=== PATIENT | female | born 1950 | race Caucasian/White ===

== ENCOUNTER 2023-08-13 06:00 | Day surgery (SDC) | payer OTHER ==
[2023-08-12 15:34] LABS: HEMATOCRIT 34.3 % (36.0-45.00); HEMOGLOBIN 11.6 g/dL (12.0-15.00); MEAN CELL VOLUME 89.1 fL (80.00-100.00); MEAN CORPUSCULAR HEMOGLOBIN 30.1 pg (27.00-32.0); MEAN CORPUSCULAR HGB CONC 33.8 g/dl (32.0-36.0); PLATELET COUNT 294 K/uL (150-450); RED BLOOD COUNT 3.84 M/uL (4.00-6.00); RED CELL DISTRIBUTION WIDTH 13.1 % (11.5-14.5)
[2023-08-12 16:05] LABS: INR 0.97; PROTHROMBIN TIME 10.2 SECONDS (9.0-11.5)
[2023-08-12 16:30] LABS: ALBUMIN 3.9 gm/dL (3.4-5.0); BILIRUBIN TOTAL 0.37 mg/dL (0.3-1.2); CALCIUM 10.3 mg/dL (8.5-10.1); CREATININE SERUM 0.9 mg/dL (0.55-1.02); GFR 61.72; POTASSIUM 3.63 mEq/L (3.5-5.1); TOTAL PROTEIN 7.9 gm/dL (6.4-8.2)
[2023-08-13 06:58] LABS: URINE APPEARANCE Clear; URINE BILIRRUBIN Negative (NEGATIVE); URINE BLOOD Negative; URINE COLOR Yellow; URINE GLUCOSE Negative (NEGATIVE); URINE LEUKOCYTE Negative; URINE NITRATE Negative; URINE PROTEIN Negative (NEGATIVE); URINE UROBILINOGEN 0.2 E.U./dl
[2023-08-13 06:59] LABS: URINE BACTERIA 6.2 uL (0.0-1933); URINE RBC 3.4 uL (0.0-20.8)
[2023-08-13 07:16] LABS: URINE EPITHELIAL CELLS 1.3 uL (0.0-38.8); URINE WBC 0.4 uL (0.0-23.2)
[2023-08-13] MEDS ORDERED: CEFAZOLIN SODIUM 1,000 MG VIAL ONE (14:05)
[2023-08-13] MEDS ORDERED: BUPIVACAINE HCL/PF 0.5% 30ML ML ONE (16:29)
[2023-08-13] MEDS ORDERED: POVIDONE-IODINE 118 ML BOTT TOP ONE (17:29)
[2023-08-13] MEDS ORDERED: BUPIVACAINE HCL 30 ML VIAL IJ ONE (17:30)
[2023-08-13] MEDS ORDERED: CEFAZOLIN SODIUM 1,000 MG VIAL IV ONE (17:30)
[2023-08-13] MEDS ORDERED: ALEVE220 M1 PO (18:17)
[2023-08-13] MEDS ORDERED: CEFADROXIL500 MG PO (18:17)
[2023-08-13] MEDS ORDERED: PERCOCET 5-3251 EACH PO (18:17)
[2023-08-13] MEDS ORDERED: KETOROLAC TROMETHAMINE 30 MG VIAL ONE (20:54)
== END 2023-08-13 21:20 | disposition home or self-care (01) ==
LOC: CIR.AMB 06:00
PROVIDERS: ATTEND Orthopaedic Surgery
DX: S52.532A Colles' fracture of left radius, initial encounter for closed fracture (principal); S52.692A Other fracture of lower end of left ulna, initial encounter for closed fracture; M81.0 Age-related osteoporosis without current pathological fracture
CPT/HCPCS: 25609; 20902; 25652; L8699

== ENCOUNTER 2025-01-25 09:10 | Outpatient (CLI) | payer OTHER ==
[~2025-01-25 09:10] MED LIST: ALEVE220 M1 PO; CEFADROXIL500 MG PO; PERCOCET 5-3251 EACH PO
== END 2025-01-25 09:12 | disposition home or self-care (01) ==
LOC: SONOGRAMA 09:10
PROVIDERS: ATTEND Pathology Anatomic Pathology & Clinical Pathology
DX: E04.1 Nontoxic single thyroid nodule (principal); E04.2 Nontoxic multinodular goiter